=== PATIENT | female | born 1955 | race Caucasian/White ===

== ENCOUNTER → 2021-12-16 | Outpatient (CLI) | payer BC | LOC: COL.RAD 11:00 | DX: R10.9 Unspecified abdominal pain (principal) ==

== ENCOUNTER → 2021-12-25 | Outpatient (CLI) | payer MEDICARE | LOC: COL.RAD 11:17 | DX: K57.90 Diverticulosis of intestine, part unspecified, without perforation or abscess without bleeding (principal); K57.92 Diverticulitis of intestine, part unspecified, without perforation or abscess without bleeding; S22.089D Unspecified fracture of T11-T12 vertebra, subsequent encounter for fracture with routine healing; S32.019A Unspecified fracture of first lumbar vertebra, initial encounter for closed fracture; S32.029A Unspecified fracture of second lumbar vertebra, initial encounter for closed fracture; S32.039A Unspecified fracture of third lumbar vertebra, initial encounter for closed fracture; Z90.710 Acquired absence of both cervix and uterus; Z90.49 Acquired absence of other specified parts of digestive tract | CPT/HCPCS: Q9967 ==